=== PATIENT | female | born 1950 | race Caucasian/White ===

== ENCOUNTER → 2019-06-25 | Outpatient (CLI) | payer MEDICARE, OTHER | LOC: M.ULTRA 06-22 08:57 | DX: M25.472 Effusion, left ankle (principal) ==

== ENCOUNTER → 2019-10-15 | Outpatient (CLI) | payer MEDICARE, OTHER | LOC: M.MRI 14:05 | DX: S56.212A Strain of other flexor muscle, fascia and tendon at forearm level, left arm, initial encounter (principal); M77.8 Other enthesopathies, not elsewhere classified; R60.0 Localized edema; X58.XXXA Exposure to other specified factors, initial encounter; Y93.89 Activity, other specified; Y92.89 Other specified places as the place of occurrence of the external cause; Y99.8 Other external cause status ==